=== PATIENT | female | born 1950 | race Caucasian/White ===

== ENCOUNTER 2016-11-18 15:41 | Outpatient (CLI) | payer BC ==
--- OUTSIDE RECORDS SUMMARY | 2016-11-18 15:43 | XMS | Clinical Summary ---
:1950 Author Organization [facility] Address [address] [place] [address] Phone Care Team Providers Name Role Phone , Primary Care Provider Unavailable Allergies Active Allergy Reactions Severity Noted Date Comments Budesonide Hives 01/16/2014 Propoxyphene Nausea And Vomiting 01/16/2014 Fexofenadine Palpitations Low 01/16/2014 Pseudoephedrine Hcl Palpitations Low 01/16/2014 Current Medications Prescription Sig. Disp. Refills Start Date End Date Status levothyroxine (SYNTHROID, Take 125 mcg by Active LEVOTHROID) 125 MCG tablet mouth every morning. liothyronine (CYTOMEL) 5 Take 5 mcg by Active MCG tablet mouth every morning. acetaminophen (TYLENOL) Take 500 mg by Active 500 MG tablet mouth every 6 (six) hours as needed for Pain. naproxen Take 220 mg by Active (ALEVE,ANAPROX,MIDOL) 220 mouth as needed. MG tablet cetirizine (ZYRTEC) 10 MG Take 10 mg by Active tablet mouth daily as needed for Allergies. cyanocobalamin (VITAMIN Take 2,000 mcg by Active B-12) 2000 MCG tablet mouth daily. cholecalciferol, vitamin Take 50,000 Units Active D3, 50,000 unit Tab by mouth as directed. Every 2 weeks levalbuterol (XOPENEX HFA) Inhale 1 puff by Active 45 mcg/actuation inhaler mouth via inhaler every 6 (six) hours as needed for Wheezing. estradiol (ESTRACE) 1 MG Take 1 mg by mouth Active tablet daily. Active Problems Problem Noted Date Abnormal uterine bleeding 01/22/2014 Rectocele 01/22/2014 Social History Tobacco Use Types Packs/Day Years Used Date Former Smoker Smokeless Tobacco: Never Used Alcohol Use Drinks/Week oz/Week Comments Yes socially Sex Assigned at Date Recorded Not on file Last Filed Vital Signs Vital Sign Reading Time Taken Blood Pressure 127/70 01/23/2014 3:00 PM [employer] Pulse 66 01/23/2014 12:30 PM [employer] Temperature 36.6 C (97.9 F) 01/23/2014 9:56 AM [employer] O[employer] Respiratory Rate 16 01/23/2014 3:00 PM [employer] Oxygen Saturation 98% 01/23/2014 12:30 PM [employer] O[employer] Inhaled Oxygen Concentration - - Weight 99.8 kg (220 lb) 01/23/2014 7:55 AM [employer] Height 162.6 cm (5' 4") 01/23/2014 7:55 AM [employer] O[employer] Body Mass Index 37.76 01/23/2014 7:55 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
--- NOTE | 2016-11-18 16:46 | RAD ---
TWO VIEWS LUMBOSACRAL SPINE: 11/18/16 COMPARISON: Lumbar MRI 10/06/16 and lumbar spine radiograph 10/06/16. HISTORY: Lumbar compression fracture. FINDINGS: Two views of the lumbosacral spine shows stable wedge compression deformity of the L3 vertebral body with approximately 30 to 40% height loss predominantly involving the superior end plate. The other vertebral bodies demonstrate normal height without fracture or subluxation. Posterior facet arthrosi s is seen in the lower lumbosacral spine. IMPRESSION: Stable compression fracture of L3. POS: ROMANA
== END 2016-11-18 15:42 | disposition home or self-care (01) ==
LOC: TBSIIMAG 15:41
PROVIDERS: ATTEND Surgery
DX: M54.5 Low back pain (principal); Q76.2 Congenital spondylolisthesis; M48.56XA Collapsed vertebra, not elsewhere classified, lumbar region, initial encounter for fracture
CPT/HCPCS: 72100

== ENCOUNTER 2019-12-31 07:11 | Outpatient (CLI) | payer OTHER ==
[2019-12-31 11:48] LABS: Hemoglobin 14.1 g/dL (12.0-16.0); Mean Corpuscular HGB CONC 32.5 G/DL (32.0-36.0); Mean Corpuscular Hemoglobin 29.3 PG (27.0-33.0); Mean Corpuscular Volume 90.2 fl (80.0-100.0); Mean Platelet Volume 9.1 fl (7.4-10.4); Platelet Count 393 10x3/uL (130-400); RBC Distribution Width 14.4 % (11.5-14.5); Red Blood Cell (RBC) Count 4.81 10x6/uL (3.90-5.20); White Blood Cell (WBC) Count 9.2 10x3/uL (4.5-11.0)
[2019-12-31 12:21] LABS: INR-International Normal Ratio 1.1; PTT 27.8 sec (22.0-33.0); Prothrombin Time 11.8 sec (9.5-12.1)
[2019-12-31 12:52] LABS: Anion Gap 16 mmol/L (10-20); BUN (Urea Nitrogen) 22 mg/dL (9.8-20.1); Calc. Creatinine Clearance 0 mL/min (70-130); Calcium 9.1 mg/dL (7.8-10.44); Carbon Dioxide 19 mmol/L (23-31); Chloride 106 mmol/L (98-107); Estimated GFR-MDRD 79; Glucose 91 mg/dL (80-115); Potassium 4.4 mmol/L (3.5-5.1); Sodium 137 mmol/L (136-145)
[2020-01-01 15:36] LABS: SARS-CoV-2 MS2 Positive; SARS-CoV-2 N Gene Negative; SARS-CoV-2 S Gene Negative; SARS-CoV-2 by NAA Not Detected (NotDetected); SARS-CoV-2 orf1ab Negative
--- NOTE | 2020-01-04 08:23 | EKG ---
Test Reason : Blood Pressure : / mmHG Vent. Rate : 066 BPM Atrial Rate : 066 BPM P-R Int : 154 ms QRS Dur : 094 ms QT Int : 396 ms P-R-T Axes : 061 -21 009 degrees QTc Int : 415 ms Normal sinus rhythm Low voltage QRS Incomplete right bundle branch block Cannot rule out Anterior infarct , age undetermined Abnormal ECG No previous ECGs available Confirmed by PAM WALLER MD ([id number]) on 01/04/2020 8:23:21 AM Referred By: DAYSI Confirmed By:PAM WALLER MD
== END 2019-12-31 07:12 | disposition home or self-care (01) ==
LOC: LABBT 07:11
PROVIDERS: ATTEND Surgery
DX: Z01.818 Encounter for other preprocedural examination (principal); Z20.828 Contact with and (suspected) exposure to other viral communicable diseases; M47.26 Other spondylosis with radiculopathy, lumbar region
CPT/HCPCS: 80048; 85027; 85610; 85730; 87635; 93005; 93010; U0003

== ENCOUNTER 2020-01-03 08:26 | Day surgery (SDC) | payer OTHER ==
[2020-01-03] MEDS ORDERED: Scopolamine 1.5 mg/72 hour Patch ONE (09:30)
[2020-01-03] MEDS ORDERED: Famotidine/PF 20 mg/2ml Vial ONE (09:30)
[2020-01-03] MEDS ORDERED: Midazolam HCl 2 mg/2 ml Vial ONE (09:40)
[2020-01-03] MEDS ORDERED: ePHEDrine 50 MG/ML VIAL ONE (10:04)
[2020-01-03] MEDS ORDERED: Glycopyrrolate 0.2 MG/ML 5 ML SYRINGE ONE ×2 (10:04)
[2020-01-03] MEDS ORDERED: Metoclopramide HCl 10 MG/2 ML VIAL ONE (10:04)
[2020-01-03] MEDS ORDERED: Dexamethasone 20 MG/5 ML VIAL ONE (10:04)
[2020-01-03] MEDS ORDERED: PROPOFOL 200 MG/20 ML VIAL ONE (10:04)
[2020-01-03] MEDS ORDERED: Ondansetron PF 4 MG/2 ML Vial ONE ×2 (10:04→17:52)
[2020-01-03] MEDS ORDERED: Rocuronium Bromide 10 MG/ML (10ML VIAL) ONE (10:04)
[2020-01-03] MEDS ORDERED: Lidocaine 1% PF 5 ML VIAL ONE (10:04)
[2020-01-03] MEDS ORDERED: Thrombin 5000 UNITS/5 ML VIAL ONE (13:18)
[2020-01-03] MEDS ORDERED: Fentanyl 100 MCG/2 ML VIAL ONE ×3 (14:00→17:52)
[2020-01-03] MEDS ORDERED: Ondansetron HCl/PF 4 MG/2 ML Vial IVP PRN (16:41)
[2020-01-03] MEDS ORDERED: Promethazine HCl 25 MG/ML VIAL IM PRN (16:41)
[2020-01-03] MEDS ORDERED: Promethazine HCl 25 MG/ML VIAL SLOW IVP PRN (16:41)
[2020-01-03] MEDS ORDERED: Morphine 2 MG/ML VIAL SLOW IVP PRN (16:47)
[2020-01-03] MEDS ORDERED: Bisacodyl 10 MG SUPP PR PRN (16:47)
[2020-01-03] MEDS ORDERED: Mag-Al 1200 mg/1200 mg/30 ML UDCUP PO PRN (16:47)
[2020-01-03] MEDS ORDERED: tiZANidine HCl 4 MG TAB PO PRN (16:47)
[2020-01-03] MEDS ORDERED: Milk Of Magnesia 30 ML UDCUP PO PRN (16:47)
[2020-01-03] MEDS ORDERED: Acetaminophen 325 MG TAB PO PRN (16:47)
[2020-01-03] MEDS ORDERED: HYDROcodone/Acetaminophen 7.5/325 mg Tablet PO PRN (16:47)
[2020-01-03] MEDS ORDERED: Promethazine 25 MG TAB PO PRN (16:47)
[2020-01-03] MEDS ORDERED: Azelastine 137 MCG/Spray 30 ML NS PRN (16:49)
[2020-01-03] MEDS ORDERED: Albuterol Sulfate 2.5 mg/3 ml Neb NEB PRN (17:07)
[2020-01-03] MEDS: CEFAZOLIN 2 GM in Premix Bag 1 BAG IVPB SCH (18:00)
[2020-01-03] MEDS ORDERED: traMADol HCl 50 MG TAB ONE ×2 (19:50→19:51)
[2020-01-03] MEDS: traMADol HCl 50 MG TAB PO PRN (20:00)
[2020-01-03] MEDS ORDERED: Sodium Chloride 0.9% 10 ML ONE (20:17)
[2020-01-03] MEDS: Sodium Chloride 0.9% 1,000 ML IV SCH (23:00)
[2020-01-04] MEDS: CEFAZOLIN 2 GM in Premix Bag 1 BAG IVPB SCH (01:46)
[2020-01-04] MEDS: traMADol HCl 50 MG TAB PO PRN (03:00)
[2020-01-04 03:34] VITALS: BMI 39.3
[2020-01-04] MEDS: Sodium Chloride 0.9% 1,000 ML IV SCH (05:28)
[2020-01-04] MEDS ORDERED: Levothyroxine Sodium 100 MCG TAB PO SCH (06:00)
[2020-01-04] MEDS: Acetaminophen/Codeine 30-300mg Tablet PO PRN ×2 (07:49→11:28)
[2020-01-04] MEDS ORDERED: Liothyronine Sodium 5 MCG TAB PO SCH (09:00)
[2020-01-04] MEDS ORDERED: Loratadine 10 MG TAB PO SCH (09:00)
--- NOTE | 2020-01-04 11:18 | PRG ---
DATE OF SERVICE: 01/04/2020 Ms. Jones is postoperative day #1 following L2-L3 laminectomy, partial facetectomy, and foraminotomies with right L4-L5 hemilaminotomy and foraminotomy. She has had resolution in her low back and leg pain and is mobilizing and ambulating in the hallways at this time. She has no postural headache this morning. Her wound is dry. She had [id number] right buttock pain, but this appears to have improved. She will be discharged. We went over do's and don'ts in the postoperative period and her intraoperative course. Job ID: [id number]
--- NOTE | 2020-01-04 11:36 | OP ---
DATE OF PROCEDURE: 01/03/2020 INSERTER OPERATOR: Quiana Gagnon PA-C PREPROCEDURE DIAGNOSES: Low back and leg pain with frequent falls, lumbar stenosis. PROCEDURES PERFORMED: 1. L2-L3 laminectomy, partial facetectomy, and foraminotomies. 2. Right L4-L5 hemilaminotomy and foraminotomy. 3. Use of operative microscope for microdissection. DESCRIPTION OF PROCEDURE: After informed consent was obtained from the patient, the patient was brought to the OR. Proper patient, pause, and identification were carried out, she was placed under excellent general endotracheal anesthesia and positioned prone on the OR table. All appropriate points were padded. We identified the L2-L3 segment and the L4-L5 segments. Linear dyer were made over this region. This area was sterilely cleansed, prepared, and draped. Proper patient, pause, and identification were carried out. The L2-L3 wound was then opened with combination of sharp, monopolar, and blunt dissection. The L2-L3 segments exposed. Localization film confirmed our area of interest. We then performed an L2-L3 laminectomy, partial facetectomy, and foraminotomy. The dura was quite thin in the L3 region and there was no spinal fluid leak. We then turned our attention to copious irrigation, hemostasis, and a small amount of DuraSeal put upon the dura to protect it and the wound was closed in anatomic layers following sprinkling of vancomycin powder. We then turned our attention to the right L4-L5 wound and the use of the operative microscope for microdissection. 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 This was atypical as the right L4 nerve root typically starts to descent in its lateral recess at the right L3-L4 segment. Nevertheless, the nerve root appeared to be somewhat adhered with a very shallow axilla and the right L4 segment and a small amount of spinal fluid was leaked as I was dissecting the right L5 nerve root, which had a more normal course out. I then identified the right L5 nerve root and protected the right L4 nerve root. The right L5 nerve root was freed throughout its course. Copious irrigation occurred throughout as maximizing hemostasis. Again, a small amount of DuraSeal was placed over the right L4-L5 segment and the regions was closed in anatomic layers following meticulous hemostasis. The patient emerged from anesthesia. Job ID: [id number]
[2020-01-04 12:05] VITALS: BP 122/71; TEMP 98.2
== END 2020-01-04 12:14 | disposition home or self-care (01) ==
LOC: SDC 08:26 → SURG A 16:47 → SDC 01-04 12:14
PROVIDERS: ATTEND Surgery
PROC: 01NB0ZZ Release Lumbar Nerve, Open Approach (ICD-10-PCS; principal; 2020-01-03)
DX: M48.061 Spinal stenosis, lumbar region without neurogenic claudication (principal); M47.26 Other spondylosis with radiculopathy, lumbar region; I10 Essential (primary) hypertension; J45.909 Unspecified asthma, uncomplicated; E89.0 Postprocedural hypothyroidism; E66.9 Obesity, unspecified; Z68.39 Body mass index [BMI] 39.0-39.9, adult; Z79.899 Other long term (current) drug therapy; Z87.891 Personal history of nicotine dependence; Z88.8 Allergy status to other drugs, medicaments and biological substances; Z91.048 Other nonmedicinal substance allergy status
CPT/HCPCS: 76000; J0690; J1100; J2250; J2405; J2704; J2765; J3010; J3370; J3490; S0028